=== PATIENT | female | born 1985 | race Caucasian/White ===

== ENCOUNTER 2019-07-25 04:52 | Emergency (ER) | payer OTHER ==
[~2019-07-25] VITALS: Ht 152.4 cm; Wt 78.0 kg
[2019-07-25 04:55] VITALS: BP 90/63
--- NOTE | 2019-07-25 05:07 | NUR ---
PT IN WHEELCHAIR TO ER BED 11
--- NOTE | 2019-07-25 05:29 | NUR ---
WICHO MONZON AT BEDSIDE.
[2019-07-25] MEDS ORDERED: KETOROLAC 60 MG/2 ML VIAL IM ONE (05:30)
--- NOTE | 2019-07-25 05:32 | NUR ---
34 Y/O FEMALE BIB C/O BODY PAIN S/P FALL AFTER SHOWERING THIS MORNING. PATIENT IS A/O X4 AND IS ABLE TO FOLLOW COMMANDS. PERRLA +3. PATIENT STATED THAT SHE SLIPPED AND FELL IN THE BATH TUB ON RIGHT SIDE/HEAD AND THEN LANDED ON THE LEFT SIDE INJURING HER SHOULDER. PAIN IS 10/10 ACUTE PAIN. PT. FLINCHES WHEN PRESSURE APPLIED ON THE DELTOID. SHE IS AMBULATORY WITH ASSIST/ W. ERMD AWARE OF STATUS. SIDE RAILS X1. PLACED ON MONITOR. AT BEDSIDE. NKDA PMH: DENIES NKDA
--- NOTE | 2019-07-25 05:48 | NUR ---
ULTRASOUND AT BEDSIDE.
--- NOTE | 2019-07-25 06:25 | NUR ---
LEFT SHOULDER IMOBOLIZER WAS PLACED ON PT TO STABALIZE LEFT ARM. PTS PMSC WNL.
--- NOTE | 2019-07-25 07:01 | NUR ---
PATIENT IS SITTING QUIETLY IN BED. AT BEDSIDE.
--- NOTE | 2019-07-25 07:06 | NUR ---
Pt report given to MYRNA CASTILLO. Transfer of care at this time.
--- NOTE | 2019-07-25 07:07 | NUR ---
VSS AT THIS TIME. [id number]. PENDING DISCHARGE AT THIS TIME
[2019-07-25 07:14] VITALS: BP 109/56
--- NOTE | 2019-07-25 07:14 | NUR ---
Patient discharged with v/s stable. Written and verbal after care instructions given and explained. Patient alert, oriented and verbalized understanding of instructions. Ambulatory with steady gait. All questions addressed prior to discharge. ID band removed. Patient advised to follow up with PMD. Rx of MOTRIN given. Patient educated on indication of medication including possible reaction and side effects. Opportunity to ask questions provided and answered. PT DISHCARGED HOME WITH SLING, PALPABLE RADIAL PULSE, CAP REFILL < 3 SECONDS
== END 2019-07-25 07:14 | disposition home or self-care (01) ==
LOC: MED 04:52
DX: S39.012A Strain of muscle, fascia and tendon of lower back, initial encounter (principal); S40.012A Contusion of left shoulder, initial encounter; W01.0XXA Fall on same level from slipping, tripping and stumbling without subsequent striking against object, initial encounter; Y93.E1 Activity, personal bathing and showering; Y92.89 Other specified places as the place of occurrence of the external cause; Y99.8 Other external cause status
CPT/HCPCS: 73030; 96372; 99283; J1885; Q0092